=== PATIENT | male | born 2000 | race Caucasian/White ===

== ENCOUNTER 2024-07-17 20:54 | Emergency (ER) | payer BC ==
[~2024-07-17] VITALS: Ht 188 cm; Wt 80.0 kg
[2024-07-17 21:12] VITALS: BP 123/73; RESP 20; O2SAT 100
[2024-07-17] MEDS: ONDANSETRON HCL 4MG TABLET PO ONE (22:08)
[2024-07-17] MEDS: ACETAMINOPHEN 325MG TABLET PO ONE (22:08)
[2024-07-17 22:15] LABS: HEMATOCRIT. 43.7 % (42.0-52.0); HEMOGLOBIN. 15.6 g/dL (14.0-18.0); MEAN CORPUSCULAR HEMOGLOBIN 31.8 pg (28.0-32.0); MEAN CORPUSCULAR HGB CONC 35.6 g/dL (31.0-37.0); MEAN CORPUSCULAR VOLUME 89.4 fL (80.0-94.0); MEAN PLATELET VOLUME 7.6 fl (7.4-10.4); PLATELET 160 x1000/uL (130-400); RED BLOOD CELL COUNT 4.89 mill/uL (4.7-6.1); RED CELL DISTRIBUTION WIDTH 12.5 % (11.6-14.6); WHITE BLOOD COUNT 9.9 x1000/uL (4.5-11.0)
[2024-07-17 22:19] LABS: CHLORIDE 98 mEq/L (98-107); POTASSIUM 4.1 mEq/L (3.5-5.1); SODIUM 135 mEq/L (136-145)
[2024-07-17 22:20] LABS: CALCIUM 9.5 mg/dL (8.7-10.4); CARBON DIOXIDE 29 mEq/L (21-32)
[2024-07-17 22:25] LABS: CREATININE 1.3 mg/dL (0.6-1.3); GLUCOSE 109 mg/dL (70-105); UREA NITROGEN BLOOD 13 mg/dL (9-23)
[2024-07-17 22:30] LABS: DIFFERENTIAL COMMENT 1
[2024-07-17 23:06] LABS: PLATELET ESTIMATE NORMAL
[2024-07-17 23:50] VITALS: PULSE 115; TEMP 38.2; O2SAT 99
[2024-07-18] MEDS: IBUPROFEN 400MG TABLET PO ONE (00:06)
== END 2024-07-18 00:15 | disposition left against medical advice (07) ==
LOC: ER 20:54
DX: B34.9 Viral infection, unspecified (principal)
CPT/HCPCS: 99284; 71045; 80048; 85025; 36415; Q0162